=== PATIENT | male | born 1980 | race Caucasian/White ===

== ENCOUNTER 2017-06-02 14:38 | Emergency (ER) | payer OTHER ==
[2017-06-02 14:52] VITALS: BP 150/99
[2017-06-02] MEDS ORDERED: Ketorolac 30 MG/ML SDV IM ONE (15:11)
[2017-06-02] MEDS ORDERED: Take Home: Cyclobenzaprine 10 MG Tab, 4 Tab Pack PO ONE (15:13)
[2017-06-02] MEDS ORDERED: Take Home: Ketorolac 10 MG Tab, 4 Tab Pack PO ONE (15:13)
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
== END 2017-06-02 16:50 | disposition home or self-care (01) ==
LOC: VM.ED 14:38
DX: M62.830 Muscle spasm of back (principal); F17.210 Nicotine dependence, cigarettes, uncomplicated
CPT/HCPCS: 96372; 99283; A9270-GY; J1885; J2360